=== PATIENT | female | born 1970 | race Two or more races ===

== ENCOUNTER 2025-01-19 08:06 | Day surgery (SDC) | payer MEDICAID ==
[2025-01-19] VITALS (7 sets, daily range): BP systolic 107–132; BP diastolic 75–85; PULSE 66–81; RESP 13–19; TEMP 98; O2SAT 92–96
[~2025-01-19] VITALS: Ht 157.5 cm; Wt 99.3 kg
[~2025-01-19 08:06] MED LIST: ALBU108A5 IN; ASPI-543 PO; ATOR10TA52 PO; FAMO-12 PO; FLUT1INH6 IN; LISI10TA34 PO; LORA-622 PO; MONT-8 PO; NITR0.4S29 SL; OMEP20TA PO; SERT-375 PO
[2025-01-19] MEDS ORDERED: IODIXANOL 320MG/ML 100ML BTL IV ONE (11:48)
[2025-01-19] MEDS ORDERED: MIDAZOLAM HCL 2MG/2ML 2ml VIAL (1mg/ml) ONE (11:52)
[2025-01-19] MEDS ORDERED: LIDOCAINE 2%HCL (LOCAL ANESTH.) INJ 20ML MDV ONE (11:52)
[2025-01-19] MEDS ORDERED: ANGIOMAX 250 MG VIAL IV ONE (11:52)
[2025-01-19] MEDS ORDERED: fentaNYL CITRATE 100 MCG/2 ML VL ONE (11:52)
[2025-01-19] MEDS ORDERED: HEPARIN SODIUM (PORCINE) 5000 UNITS/ML 1ML VIAL ONE (11:52)
[2025-01-19] MEDS ORDERED: VERAPAMIL 2.5MG/ML INJ 2ML VIAL IV ONE (11:52)
[2025-01-19] MEDS ORDERED: SODIUM CHL 0.9% 0 ML ONE (11:52)
--- NOTE | 2025-01-19 12:22 | DVHOP2 ---
Operative Report - 2 Report Details Date: 01/19/25 Preop Diagnosis: CAD Postop Diagnosis: Normal coronary arteries Surgeon: Xavier Pierce MD Anesthesiologist: Conscious sedation Anesthesia: Mac, Local Consent: The patient was informed of the risks and benefits of the procedure. These include but are not limited to complications of anesthesia, postoperative infection, incomplete relief of symptoms, recurrence of symptoms, damage to blood vessels, nerves and tendons, deep venous thrombosis, pulmonary embolism and possible need for repeat surgery in the future. Complications: No complications Findings: Normal coronary arteries Indications for Surgery: Chest pain. Abnormal stress test. Name of Procedure Performed Left heart catheterization bilateral cine coronary angiography. Left ventriculography. Procedure Details Procedure Details: Prior local anesthesia with 2% lidocaine to the right wrist and full informed consent obtained patient was prepped and draped in usual fashion followed by placement of a six Slovak sheath into the right radial artery through which six a six Slovak multipurpose catheter was used for ventriculography and cannulation of both right and left coronary ostia without complications. Hemodynamics: Aortic blood pressure was 110/70. End-diastolic pressure was five. There was no gradient across the aortic valve on pullback. Coronary anatomy: The RCA is a large vessel it is normal in its proximal mid and distal segments. The PDA and posterolateral branches are normal. Left main is large and normal. Left anterior descending coronary artery is a large vessel it is normal in its proximal mid and distal segments. The diagonals and septals are normal. The circumflex is a large vessel. It is normal in its proximal mid and distal segments. The marginals and circumflex proper is within normal limits. Ventriculography in the CORREIA projection shows an EF of 65% Impression: Normal ventricular end-diastolic pressure less with a normal ej ection fraction. No significant CAD. Recommendations: Continue medical therapy and risk factor modification. Condition Good Disposition Home Date of Service: Jan 19, 2025 Billing Provider: XAVIER PIERCE Sr., MD Cardiology Common Codes: 70420-PTHQFLB INP/OBS CARE (High) Cardiology Procedure Codes: 65952-NMHZ HEART CATH W/INTRA INJ XAVIER PIERCE Sr., MD Jan 19, 2025 12:22
== END 2025-01-19 14:35 | disposition home or self-care (01) ==
LOC: CATH 08:06
PROVIDERS: ATTEND Internal Medicine
DX: I25.10 Atherosclerotic heart disease of native coronary artery without angina pectoris (principal); F33.9 Major depressive disorder, recurrent, unspecified; F41.9 Anxiety disorder, unspecified; G47.33 Obstructive sleep apnea (adult) (pediatric); E66.09 Other obesity due to excess calories; I50.20 Unspecified systolic (congestive) heart failure; I11.0 Hypertensive heart disease with heart failure; J45.901 Unspecified asthma with (acute) exacerbation; E78.00 Pure hypercholesterolemia, unspecified; Z68.41 Body mass index [BMI] 40.0-44.9, adult; Z79.899 Other long term (current) drug therapy; Z90.49 Acquired absence of other specified parts of digestive tract; Z98.890 Other specified postprocedural states
CPT/HCPCS: 93458; C1769; C1894; J1644; J2250; J3010; J7030; Q9967; 99152